=== PATIENT | female | born 1985 | race American Indian/Alaskan Native ===

== ENCOUNTER 2017-05-20 20:47 | Emergency (ER) | payer OTHER ==
--- NOTE | 2017-05-21 00:39 | Emergency Department Report ---
ED Abdominal Pain HPI - General Chief Complaint: Tube Replacement Stated Complaint: DRAIN TUBE COMPLICATIONS Time Seen by Provider: 05/21/17 00:02 Source: patient Mode of arrival: Ambulatory Limitations: No Limitations - History of Present Illness Initial Comments: 31-year-old female past medical history recent abdominal and mammoplasty presents with complaint of slight increased drainage from REBECA drain at abdominal surgical site. Patient also states that the suture holding her drain in place popped open. Patient states she is having mild abdominal pain at site. Denies any fevers chills nausea or vomiting. States that she had surgery done at outpatient surgical center for [facility] by [facility]. States it was done [address] Korey Milian. Patient is awake alert and oriented 3. Patient states she has had slight increase in output of REBECA drain. MD Complaint: abdominal pain Onset/Timin -: week(s) Location: LLQ Radiation: none Severity: mild Severity scale (0 -10): 4 Quality: aching Consistency: intermittent - Related Data Allergies Allergy/AdvReac Type Severity Reaction Status Date / Time No Known Allergies Allergy Verified 05/21/17 00:55 ED Review of Systems ROS: Stated complaint: DRAIN TUBE COMPLICATIONS Other details as noted in HPI Constitutional: denies: chills, fever Eyes: denies: eye pain, eye discharge, vision change ENT: denies: ear pain, throat pain Respiratory: denies: cough, shortness of breath, wheezing Cardiovascular: denies: chest pain, palpitations Endocrine: no symptoms reported Gastrointestinal: denies: abdominal pain, nausea, diarrhea Genitourinary: denies: urgency, dysuria, discharge Musculoskeletal: denies: back pain, joint swelling, arthralgia Skin: denies: rash, lesions Neurological: denies: headache, weakness, paresthesias Psychiatric: denies: anxiety, depression Hematological/Lymphatic: denies: easy bleeding, easy bruising ED Past Medical Hx - Past Medical History Previous Medical History?: No - Surgical History Past Surgical History?: Yes Additional Surgical History: breast reduction and lift tummy tuck - Social History Smoking Status: Never Smoker Substance Use Type: None ED Physical Exam - General Limitations: No Limitations General appearance: alert, in no apparent distress - Head Head exam: Present: atraumatic, normocephalic - Eye Eye exam: Present: normal appearance, PERRL, EOMI - ENT ENT exam: Present: mucous membranes moist - Neck Neck exam: Present: normal inspection - Respiratory Respiratory exam: Present: normal lung sounds bilaterally. Absent: respiratory distress - Cardiovascular Cardiovascular Exam: Present: regular rate, normal rhythm. Absent: systolic murmur, diastolic murmur, rubs, gallop - GI/Abdominal GI/Abdominal exam: Present: soft, normal bowel sounds, other (surgical scar across lower aspect of abdomen horizontally does not appear infected pierced to be healing well. Visible insertion site for REBECA drain at left lateral edge of surgical site. No signs of cellulitis no visible abscess. Visible broken suture at the entrance site of the REBECA drain) - Extremities Exam Extremities exam: Present: normal inspection - Back Exam Back exam: Present: normal inspection - Neurological Exam Neurological exam: Present: alert, oriented X3 - Psychiatric Psychiatric exam: Present: normal affect, normal mood - Skin Skin exam: Present: warm, dry, intact, normal color. Absent: rash ED Course Vital Signs 05/20/17 05/21/17 21:15 01:10 Temperature 99.1 F Pulse Rate 83 64 Respiratory 18 16 Rate Blood Pressure 124/80 Blood Pressure 115/72 [Left] O2 Sat by Pulse 99 100 Oximetry ED Medical Decision Making - Lab Data Result diagrams: 05/21/17 01:03 05/21/17 01:03 - Medical Decision Making A/P: Abdominal pain status post abdominoplasty, REBECA drain dislodged 1-REBECA drain is in place with tip of catheter in subcutaneous tissue at the surgical wound site. I advanced the REBECA drain slightly and sutured it in place. 2-CT abdomen and pelvis unremarkable no signs of internal abscess or hemorrhage 3-patient has no clinical signs of infection on skin on exam 4-I advised the patient to follow up with her plastic surgeon and provided her with information for plastic surgery in the [place] area. Patient states that she will call her plastic surgeon Dr. Milian and update him on her complaint of mild increased output from REBECA drain. I'll put in drain does not appear purulent syrup, serosanguineous material [email or web address] Critical care attestation.: If time is entered above; I have spent that time in minutes in the direct care of this critically ill patient, excluding procedure time. ED Disposition Clinical Impression: Abdominal pain Qualifiers: Abdominal location: generalized Qualified Code(s): R10.84 - Generalized abdominal pain Disposition: TO HOME OR SELFCARE Is pt being admited?: No Does the pt Need Aspirin: No Condition: Stable Instructions: Acute Wound Care (ED), Suture Care (ED), [facility] Drain Care (ED) Additional Instructions: Please follow-up with your plastic surgeon Dr. Korey Milian [email or web address] Referrals: ADELA GARCIA MD [Staff Physician] - 3-5 Days [facility] [Provider Group] - 3-5 Days [facility] [Outside] - 3-5 Days [facility] [Provider Group] - 3-5 Days Forms: Accompanied Note, Work/School Release Form(ED) Time of Disposition: 06:37
[2017-05-21] MEDS ORDERED: NACL ONE (00:51)
[2017-05-21] MEDS ORDERED: XYLOCAINE 2%/EPI 1:100,000 INFILTRATI ONE (01:18)
[2017-05-21 01:19] LABS: Basophils % (Auto) 0.7 % (0.0-1.8); Eosinophils % (Auto) 3.5 % (0.0-4.3); Hematocrit 34.1 % (30.3-42.9); Hemoglobin 11.2 gm/dl (10.1-14.3); Mean Corpuscular HGB Conc 33 % (30-34); Mean Corpuscular Hemoglobin 30 pg (28-32); Mean Corpuscular Volume 91 fl (79-97); Platelet Count 447 K/mm3 (140-440); Red Blood Count 3.76 M/mm3 (3.65-5.03); Red Cell Distribution Width 12.8 % (13.2-15.2); White Blood Count 8.4 K/mm3 (4.5-11.0)
[2017-05-21 01:39] LABS: Albumin 3.7 g/dL (3.9-5); Albumin/Globulin Ratio 1.1 %; Alkaline Phosphatase 50 units/L (35-129); Anion Gap 16 mmol/L; BUN/Creatinine Ratio 26.66; Bilirubin,Total < 0.20 mg/dL (0.1-1.2); Blood Urea Nitrogen 16 mg/dL (7-17); Calcium 8.7 mg/dL (8.4-10.2); Carbon Dioxide 26 mmol/L (22-30); Chloride 101.6 mmol/L (98-107); Glucose 87 mg/dL (65-100); Potassium 3.7 mmol/L (3.6-5.0); Sodium 140 mmol/L (137-145); Total Protein 7.2 g/dL (6.3-8.2)
[2017-05-21 01:42] LABS: INR 0.97 (0.87-1.13)
[2017-05-21 01:43] LABS: Partial Thromboplastin Time 34.3 Sec. (24.2-36.6)
[2017-05-21 01:50] LABS: Alanine Aminotransferase 14 units/L (7-56); Bilirubin,Direct 0.2 mg/dL (0-0.2)
[2017-05-21 01:57] LABS: Amylase 26 units/L (27-131); Lipase 49 units/L (13-60)
--- NOTE | 2017-05-21 06:11 | Cat Scan Report ---
FINAL REPORT PROCEDURE: CT ABDOMEN PELVIS W CON TECHNIQUE: Computerized axial tomography of the abdomen and pelvis was performed after the IV injection of iodinated nonionic contrast. HISTORY: abdominal pain s/p abd plasty COMPARISON: No prior studies are available for comparison. FINDINGS: Visualized lower thorax: No significant abnormality. Liver: Normal size and attenuation. Spleen: Normal size and attenuation. Gallbladder and biliary system: There are gallstones. There is no wall thickening or pericholecystic fluid.. Pancreas: Normal. Adrenals: Normal. Kidneys: Normal. GI tract: There is no bowel obstruction, colitis or enteritis. Appendix is normal.. Lymph nodes and mesentery: Normal. Vasculature: Normal. Bladder: Normal. Reproductive organs: Uterus and ovaries are unremarkable.. Peritoneum: There is no ascites, free air, abscess or adenopathy.. Musculoskeletal structures: No significant abnormality. Other: There is a 3.6 centimeter mass in the left breast. Correlation with mammogram or ultrasound suggested.. There has been abdominal plasty. There is a the percutaneous drainage catheter in the subcutaneous fat of the anterior abdominal wall. There is induration of the subcutaneous fat suggesting bruising. There is no abscess or hematoma. There is no hernia. There is no subcutaneous air. There are borderline prominent inguinal lymph nodes. IMPRESSION: There are gallstones. There is no wall thickening or pericholecystic fluid.. There is no bowel obstruction, colitis or enteritis. Appendix is normal.. There is no ascites, free air, abscess or adenopathy.. There is a 3.6 centimeter mass in the left breast. Correlation with mammogram or ultrasound suggested.. There has been abdominal plasty. There is a the percutaneous drainage catheter in the subcutaneous fat of the anterior abdominal wall. There is induration of the subcutaneous fat suggesting bruising. There is no abscess or hematoma. There is no hernia. There is no subcutaneous air.
[2017-05-21 06:52] VITALS: BP 119/86
== END 2017-05-21 06:51 | disposition home or self-care (01) ==
LOC: ED 20:47
DX: R10.84 Generalized abdominal pain (principal)
CPT/HCPCS: 36415; 74177; 80048; 80074; 82150; 83690; 84703; 85025; 85610; 85730; 99284; Q9967